=== PATIENT | male | born 1970 | race Caucasian/White ===

== ENCOUNTER 2024-03-22 07:33 | Outpatient (CLI) | payer OTHER, SELFPAY ==
[2024-03-22 08:20] LABS: Basophils # 0.1 K/mm3 (0-0.2); Basophils % 1.3 % (0.1-2.0); Eosinophils # 0.2 K/mm3 (0.0-0.4); Eosinophils % 2.3 % (0.1-12.0); Hematocrit 43.2 % (42.0-52.0); Hemoglobin 14.3 g/dL (14.1-18.0); Lymphocytes # 2.4 K/mm3 (0.7-4.5); Lymphocytes % 27.8 % (10-50); Mean Corpuscular HGB Conc 33.1 g/dL (31.8-35.4); Mean Corpuscular Hemoglobin 30.9 pg (27.0-31.2); Mean Corpuscular Volume 93.5 fl (80-94); Mean Platelet Volume 8.9 fl (7.4-10.4); Monocytes # 0.4 K/mm3 (0.1-1.0); Monocytes % 4.6 % (1.7-9.3); Neutrophils # 5.5 K/mm3 (1.8-7.8); Platelet Count 237 K/mm3 (142-424); Red Blood Count 4.62 M/mm3 (4.60-6.20); White Blood Count 8.5 K/mm3 (4.8-10.8)
[2024-03-22 08:28] LABS: Lactic Acid 1.1 mmol/L (0.7-2.1)
[2024-03-22 09:54] LABS: Vitamin B12 306 pg/mL (239-931)
[2024-03-22 14:41] LABS: Folate 7.56 ng/mL
[2024-03-25 17:10] LABS: Vitamin B1 131.5 nmol/L (66.5-200.0)
[2024-03-28 12:22] LABS: Miscellaneous Test SCANNED IMAGE
== END 2024-03-22 23:59 | disposition home or self-care (01) ==
LOC: LAB 07:41
PROVIDERS: Visit Provider Ophthalmology
DX: H47.293 Other optic atrophy, bilateral (principal); H47.323 Drusen of optic disc, bilateral
CPT/HCPCS: 36415; 82607; 82746; 83605; 83655; 84425; 85025